=== PATIENT | female | born 1985 | race Caucasian/White ===

== ENCOUNTER 2016-12-19 19:38 | Emergency (ER) | payer BC ==
[2016-12-19] MEDS ORDERED: Ketorolac 60 MG/2 ML SDV IM ONE (19:40)
== END 2016-12-19 19:54 | disposition home or self-care (01) ==
LOC: MW.ED 19:38
DX: Z76.0 Encounter for issue of repeat prescription (principal)
CPT/HCPCS: 96372; 99281; J1885

== ENCOUNTER → 2016-12-21 | Outpatient (CLI) | payer BC ==
--- NOTE | 2016-12-21 12:54 | MR ---
EXAMINATION: MRI lumbar spine HISTORY: radiculopathy COMPARISON: None TECHNIQUE: Multiplanar and multisequence images obtained of the lumbar spine. FINDINGS: The lumbar spinal alignment is normal. The vertebral body heights appear well maintained. There is no abnormal bone marrow signal identified. The distal spinal cord appears normal and the c onus terminates at L1. The SI joints are symmetric. There is a likely layering hemorrhagic left ova miko cyst noted measuring up to 3.3 cm. T12-L3: Unremarkable. L3-L4: Small diffuse disc bulge with minimal facet and ligamentum flavum hypertrophy resulting in mi nimal spinal canal stenosis and mild left neural foraminal stenosis. L4-L5: Small diffuse disc bulge with a superimposed moderate right disc extrusion extending towards the right lateral recess and the finding the right traversing L5 nerve root. There is mild spinal ca nal stenosis and mild left and moderate right neural foraminal stenosis. L5-S1: Small diffuse disc bulge asymmetric to the right without significant spinal canal stenosis. M ild right and minimal left neural foraminal stenosis. IMPRESSION: 1. Multilevel degenerative disc disease noted most prominent at L4-L5 with individual details above.
== END ==
LOC: MW.MRI 08:27
PROVIDERS: ATTEND Psychiatry & Neurology Neuromuscular Medicine
DX: M54.17 Radiculopathy, lumbosacral region (principal); M51.36 Other intervertebral disc degeneration, lumbar region
CPT/HCPCS: 72148; 72148-26

== ENCOUNTER 2017-01-05 11:33 | Emergency (ER) | payer BC ==
[2017-01-05] MEDS ORDERED: Ketorolac 60 MG/2 ML SDV ONE (11:35)
[2017-01-05] MEDS ORDERED: Ketorolac 60 MG/2 ML SDV IM ONE (11:39)
== END 2017-01-05 11:40 | disposition home or self-care (01) ==
LOC: MW.ED 11:33
DX: Z53.21 Procedure and treatment not carried out due to patient leaving prior to being seen by health care provider (principal)
CPT/HCPCS: 96372; J1885

== ENCOUNTER 2017-02-15 12:40 | Emergency (ER) | payer BC ==
[2017-02-15] MEDS ORDERED: Ketorolac 60 MG/2 ML SDV IM ONE (12:41)
== END 2017-02-15 12:45 | disposition left against medical advice (07) ==
LOC: MW.ED 12:40
DX: Z53.21 Procedure and treatment not carried out due to patient leaving prior to being seen by health care provider (principal)
CPT/HCPCS: 96372; 99281; J1885

== ENCOUNTER 2017-09-15 07:16 | Emergency (ER) | payer BC ==
[~2017-09-15 07:16] MED LIST: Sodium Chloride 0.9% 1,000 ML IV ONE
[2017-09-15] MEDS ORDERED: Ondansetron 4 MG/2 ML SDV IVPUSH ONE ×2 (07:41→08:13)
[2017-09-15] MEDS ORDERED: Ondansetron 4 MG/2 ML SDV ONE (08:11)
[2017-09-15] MEDS ORDERED: Ondansetron 4 MG Tab.DIS PO ONE (08:21)
[2017-09-15] MEDS ORDERED: Ondansetron 4 MG Tab.DIS ONE (08:24)
== END 2017-09-15 09:15 | disposition home or self-care (01) ==
LOC: MW.ED 07:16 → EDSTATUS 12:19 → MW.ED 12:33 → EDSTATUS 12:33
DX: Z53.21 Procedure and treatment not carried out due to patient leaving prior to being seen by health care provider (principal)
CPT/HCPCS: 96361; 96374; 96376; A9270; J2405; J7040

== ENCOUNTER 2019-01-06 11:20 | Emergency (ER) | payer BC ==
[2019-01-06] MEDS ORDERED: Pantoprazole 40 MG Vial IVPUSH ONE (11:29)
[2019-01-06] MEDS ORDERED: Ondansetron 4 MG/2 ML SDV IVPUSH ONE (11:29)
[2019-01-06] MEDS ORDERED: Sodium Chloride 0.9% 1,000 ML IV ONE (11:29)
--- NOTE | 2019-01-06 11:31 | EDM.PDOC ---
ED HPI GENERAL MEDICAL PROBLEM - General Stated Complaint: ABDOMINAL PAIN Time Seen by Provider: 01/06/19 11:30 Source of Information: Reports: Patient - History of Present Illness INITIAL COMMENTS - FREE TEXT/NARRATIVE: HISTORY AND PHYSICAL: History of present illness: [Patient presents with right upper quadrant/ epigastric pain and nausea which began last night no loose stools as we some food association she has been taking [id number] omeprazole without benefit presents with 8 out of 10 pain No fever vomiting chills sweats Review of systems: As per history of present illness and below otherwise all systems reviewed and negative. Past medical history: As per history of present illness and as reviewed below otherwise noncontributory. Surgical history: As per history of present illness and as reviewed below otherwise noncontributory. Social history: No reported history of drug or alcohol abuse. Family history: As per history of present illness and as reviewed below otherwise noncontributory. Physical exam: HEENT: Atraumatic, normocephalic, pupils reactive, negative for conjunctival pallor or scleral icterus, mucous membranes moist, throat clear, neck supple, nontender, trachea midline. Lungs: Clear to auscultation, breath sounds equal bilaterally, chest nontender. Heart: S1S2, regular, negative for clicks, rubs, or JVD. Abdomen: Soft, nondistended, tender on deep palpation right upper quadrant as well as epigastrium no guarding or rebound tenderness. Negative for masses or hepatosplenomegaly. Negative for costovertebral tenderness. Pelvis: Stable nontender. Genitourinary: Deferred. Rectal: Deferred. Extremities: Atraumatic, negative for cords or calf pain. Neurovascular unremarkable. Neuro: Awake, alert, oriented. Cranial nerves II through XII unremarkable. Cerebellum unremarkable. Motor and sensory unremarkable throughout. Exam nonfocal. Diagnostics: [CBC CMP troponin lipase UA hCG H pylori Abdomen flat and upright Right upper quadrant limited ultrasound ] Therapeutics: [Normal saline Proton X Zofran GI cocktail Our goal 30 mg IV-and resolved with Toradol Toradol [place] Cipro Zofran Proton X Fulda diet Follow-up Gen. surgery for consideration of endoscopy and/or HIDA scan testing ] Impression: [ abdominal pain -resolved ] Definitive disposition and diagnosis as appropriate pending reevaluation and review of above. epigastric area Pain Score (Numeric/FACES): 0 - Related Data Allergies Allergy/AdvReac Type Severity Reaction Status Date / Time Penicillins Allergy Anaphylactic Verified 12/19/16 19:49 Shock Home Meds: Home Meds Minocycline [Minocin] 50 mg PO BID 01/06/19 [History] metFORMIN [Glucophage XR] 500 mg PO DAILY 01/06/19 [History] valACYclovir HCl [Valtrex] 500 mg PO DAILY 01/06/19 [History] Past Medical History Respiratory History: Reports: Asthma - Past Surgical History Neurological Surgical History: Reports: Other (See Below) ED ROS GENERAL - Review of Systems Review Of Systems: See Below ED EXAM, GENERAL - Physical Exam Exam: See Below Course - Vital Signs Last Recorded V/S: Last Vital Signs Temp 98.4 F 01/06/19 13:00 Pulse 81 01/06/19 13:00 Resp 16 01/06/19 11:38 BP 112/66 01/06/19 13:00 Pulse Ox 97 01/06/19 13:00 - Orders/Labs/Meds Orders: Active Orders 24 hr Category Date Time Status Abdomen Ltd [US] Stat Exams 01/06/19 12:57 Taken CULTURE URINE [RM] Stat Lab 01/06/19 12:59 Received Labs: Laboratory Tests 01/06/19 01/06/19 01/06/19 Range/Units 11:29 11:43 11:43 WBC 8.77 (4.0-11.0) K/uL RBC 4.97 (4.30-5.90) M/uL Hgb 15.5 (12.0-16.0) g/dL Hct 44.6 (36.0-46.0) % MCV 89.7 (80.0-98.0) fL MCH 31.2 (27.0-32.0) pg MCHC 34.8 (31.0-37.0) g/dL RDW Std Deviation 41.3 (28.0-62.0) fl RDW Coeff of Reina 13 (11.0-15.0) % Plt Count 245 (150-400) K/uL MPV 9.80 (7.40-12.00) fL Neut % (Auto) 88.9 H (48.0-80.0) % Lymph % (Auto) 5.2 L (16.0-40.0) % [place] % (Auto) 5.7 (0.0-15.0) % Eos % (Auto) 0.1 (0.0-7.0) % Baso % (Auto) 0.1 (0.0-1.5) % Neut # (Auto) 7.8 H (1.4-5.7) K/uL Lymph # (Auto) 0.5 L (0.6-2.4) K/uL [place] # (Auto) 0.5 (0.0-0.8) K/uL Eos # (Auto) 0.0 (0.0-0.7) K/uL Baso # (Auto) 0.0 (0.0-0.1) K/uL Nucleated RBC % 0.0 /100WBC Nucleated RBCs # 0 K/uL Sodium 135 L (136-145) mmol/L Potassium 3.8 (3.5-5.1) mmol/L Chloride 103 (98-107) mmol/L Carbon Dioxide 21.2 (21.0-32.0) mmol/L BUN 14 (7.0-18.0) mg/dL Creatinine 0.7 (0.6-1.0) mg/dL Est Cr Clr Drug Dosing 105.01 mL/min Estimated GFR (MDRD) > 60.0 ml/min Glucose 101 (74-106) mg/dL Calcium 8.4 L (8.5-10.1) mg/dL Total Bilirubin 0.4 (0.2-1.0) mg/dL AST 9 L (15-37) IU/L ALT 13 L (14-63) IU/L Alkaline Phosphatase 45 L (46-116) U/L Troponin I < 0.050 (0.000-0.056) ng/mL Total Protein 6.8 (6.4-8.2) g/dL Albumin 3.4 (3.4-5.0) g/dL Globulin 3.4 (2.6-4.0) g/dL Albumin/Globulin Ratio 1.0 (0.9-1.6) Lipase 80 (73-393) U/L Urine Color Urine Appearance Urine pH (5.0-8.0) Ur Specific [place] (1.001-1.035) Urine Protein (NEGATIVE) mg/dL Urine Glucose (UA) (NEGATIVE) mg/dL Urine Ketones (NEGATIVE) mg/dL Urine Occult Blood (NEGATIVE) Urine Nitrite (NEGATIVE) Urine Bilirubin (NEGATIVE) Urine Urobilinogen (<2.0) EU/dL Ur Leukocyte Esterase (NEGATIVE) Urine RBC (0-2/HPF) Urine WBC (0-5/HPF) Ur Epithelial Cells (NONE-FEW) Urine Bacteria (NEGATIVE) Urine HCG, Qual NEGATIVE (NEGATIVE) H. pylori IgG Antibody (NEG) 01/06/19 01/06/19 Range/Units 11:43 12:59 WBC (4.0-11.0) K/uL RBC (4.30-5.90) M/uL Hgb (12.0-16.0) g/dL Hct (36.0-46.0) % MCV (80.0-98.0) fL MCH (27.0-32.0) pg MCHC (31.0-37.0) g/dL RDW Std Deviation (28.0-62.0) fl RDW Coeff of Reina (11.0-15.0) % Plt Count (150-400) K/uL MPV (7.40-12.00) fL Neut % (Auto) (48.0-80.0) % Lymph % (Auto) (16.0-40.0) % [place] % (Auto) (0.0-15.0) % Eos % (Auto) (0.0-7.0) % Baso % (Auto) (0.0-1.5) % Neut # (Auto) (1.4-5.7) K/uL Lymph # (Auto) (0.6-2.4) K/uL [place] # (Auto) (0.0-0.8) K/uL Eos # (Auto) (0.0-0.7) K/uL Baso # (Auto) (0.0-0.1) K/uL Nucleated RBC % /100WBC Nucleated RBCs # K/uL Sodium (136-145) mmol/L Potassium (3.5-5.1) mmol/L Chloride (98-107) mmol/L Carbon Dioxide (21.0-32.0) mmol/L BUN (7.0-18.0) mg/dL Creatinine (0.6-1.0) mg/dL Est Cr Clr Drug Dosing mL/min Estimated GFR (MDRD) ml/min Glucose (74-106) mg/dL Calcium (8.5-10.1) mg/dL Total Bilirubin (0.2-1.0) mg/dL AST (15-37) IU/L ALT (14-63) IU/L Alkaline Phosphatase (46-116) U/L Troponin I (0.000-0.056) ng/mL Total Protein (6.4-8.2) g/dL Albumin (3.4-5.0) g/dL Globulin (2.6-4.0) g/dL Albumin/Globulin Ratio (0.9-1.6) Lipase (73-393) U/L Urine Color YELLOW Urine Appearance CLEAR Urine pH 7.0 (5.0-8.0) Ur Specific [place] <= 1.005 (1.001-1.035) Urine Protein NEGATIVE (NEGATIVE) mg/dL Urine Glucose (UA) NEGATIVE (NEGATIVE) mg/dL Urine Ketones NEGATIVE (NEGATIVE) mg/dL Urine Occult Blood NEGATIVE (NEGATIVE) Urine Nitrite NEGATIVE (NEGATIVE) Urine Bilirubin NEGATIVE (NEGATIVE) Urine Urobilinogen 0.2 (<2.0) EU/dL Ur Leukocyte Esterase TRACE H (NEGATIVE) Urine RBC 0-2 (0-2/HPF) Urine WBC 0-2 (0-5/HPF) Ur Epithelial Cells OCCASIONAL (NONE-FEW) Urine Bacteria RARE (NEGATIVE) Urine HCG, Qual (NEGATIVE) H. pylori IgG Antibody NEGATIVE (NEG) Meds: Medications Discontinued Medications Generic Name Dose Route Start Last Admin Trade Name Freq PRN Reason Stop Dose Admin Al Hydroxide/Mg Hydroxide 15 0 ml 01/06/19 12:06 01/06/19 12:16 ml/ Metoclopramide HCl 5 mg/ PO 01/06/19 12:07 1 each Lidocaine HCl 5 ml ONETIME ONE Administration Sodium Chloride 1,000 mls @ 999 mls/hr 01/06/19 11:29 01/06/19 11:47 Normal Saline IV 01/06/19 12:29 999 mls/hr STAT ONE Administration Sterile Water Confirm 01/06/19 11:43 01/06/19 11:53 Sterile Water For Injection Administered 01/06/19 11:44 20 mls/hr Dose Administration 20 mls @ as directed .ROUTE .STK-MED ONE Ketorolac Tromethamine 30 mg 01/06/19 12:08 01/06/19 12:14 Toradol IVPUSH 01/06/19 12:09 30 mg ONETIME ONE Administration Ondansetron HCl 8 mg 01/06/19 11:29 01/06/19 11:47 Zofran IVPUSH 01/06/19 11:30 8 mg ONETIME ONE Administration Pantoprazole Sodium 80 mg 01/06/19 11:29 01/06/19 11:54 Protonix Iv IVPUSH 01/06/19 11:30 80 mg .BOLUS ONE Administration Departure - Departure Time of Disposition: 13:51 Disposition: Home, Self-Care 01 Condition: Good Clinical Impression: Abdominal pain - Discharge Information Referrals: PCP,None [Primary Care Provider] - Additional Instructions: Medication as prescribed Fulda diet as discussed Return if symptoms persist or worsen Follow-up with general surgery; call phone number below to schedule appropriate follow-up for consideration of endoscopy and/or HIDA scan testing [facility] - General Surgery [address], [address] [place] [address] The following information is given to patients seen in the emergency department who are being discharged to home. This information is to outline your options for follow-up care. We provide all patients seen in our emergency department with a follow-up referral. The need for follow-up, as well as the timing and circumstances, are variable depending upon the specifics of your emergency department visit. If you don't have a primary care physician on staff, we will provide you with a referral. We always advise you to contact your personal physician following an emergency department visit to inform them of the circumstance of the visit and for follow-up with them and/or the need for any referrals to a consulting specialist. The emergency department will also refer you to a specialist when appropriate. This referral assures that you have the opportunity for follow-up care with a specialist. All of these measure are taken in an effort to provide you with optimal care, which includes your follow-up. Under all circumstances we always encourage you to contact your private physician who remains a resource for coordinating your care. When calling for follow-up care, please make the office aware that this follow-up is from your recent emergency room visit. If for any reason you are refused follow-up, please contact the [facility] emergency department at and asked to speak to the emergency department charge nurse. - My Orders Last 24 Hours: My Active Orders 01/06/19 12:57 Abdomen Ltd [US] Stat 01/06/19 12:59 CULTURE URINE [RM] Stat - Assessment/Plan Last 24 Hours: My Active Orders 01/06/19 12:57 Abdomen Ltd [US] Stat 01/06/19 12:59 CULTURE URINE [RM] Stat
[2019-01-06] MEDS ORDERED: Water For Injection, Sterile 20 ML ONE (11:43)
[2019-01-06] MEDS ORDERED: Alum Hydrox/Mag Hydrox/Simeth 15 ML, Metoclopramide 5 MG, Lidocaine 2% 5 ML PO ONE ×3 (12:06)
[2019-01-06] MEDS ORDERED: Ketorolac 30 MG/ML SDV IVPUSH ONE (12:08)
[2019-01-06 12:15] LABS: CHLORIDE,CL 103 mmol/L (98-107); SODIUM,NA 135 mmol/L (136-145)
--- NOTE | 2019-01-06 12:55 | CR ---
Indication: Upper abdominal pain. Technique: AP supine and upright views of the abdomen and pelvis were obtained. Comparison: None Findings: The symphysis pubis is not included on this exam. The bowel gas pattern is nonobstructive. A calculus is identified in the left abdomen near the iliac crest. It is uncertain if this is within or superimposed upon the descending colon. Impression: Nonobstructed bowel-gas pattern. No free air Dictated by Claudia Traore MD @ Jan 06 2019 12:52PM Signed by Dr. Claudia Tarore @ Jan 06 2019 12:53PM
--- NOTE | 2019-01-06 14:08 | US ---
INDICATION: Epigastric pain. Nausea. FINDINGS: Right upper quadrant abdominal ultrasound was performed. The liver is of normal echotexture without any focal lesions. There is no gallstone, gallbladder wall thickening or pericholecystic fluid. The common bile duct is not dilated measuring 0.5 cm. There is the appearance of a 0.25 cm polyp in the region the cystic duct/neck of the gallbladder. The visualized portion of the pinky and right kidney are unremarkable. The right kidney measures 11.6 cm in greatest length. IMPRESSION: No acute abnormality on right upper quadrant abdominal ultrasound Appearance of a 0.25 cm polyp in the region of the cystic duct/neck of the gallbladder. Dictated by Monroe Handley MD @ 01/06/2019 2:08:03 PM Dictated by: Monroe Handley MD @ 01/06/2019 14:08:12 (Electronically Signed)
== END 2019-01-06 14:05 | disposition home or self-care (01) ==
LOC: MW.ED 11:20
DX: R10.11 Right upper quadrant pain (principal); R10.13 Epigastric pain; J45.909 Unspecified asthma, uncomplicated; Z79.899 Other long term (current) drug therapy; Z79.84 Long term (current) use of oral hypoglycemic drugs; Z88.0 Allergy status to penicillin
CPT/HCPCS: 36415; 74019; 76705; 80053; 81001; 81025; 83690; 84484; 85025; 86677; 87086; 96361; 96374; 96375; 99284; A9270; C9113; J1885; J2405; J7040

== ENCOUNTER 2019-02-05 06:25 | Day surgery (SDC) | payer BC ==
[~2019-02-05 06:25] MED LIST changes: +Lactated Ringers 1,000 ML IV SCH; -Sodium Chloride 0.9% 1,000 ML IV ONE
[2019-02-05] MEDS ORDERED: fentaNYL 100 MCG/2 ML SDV ONE (07:07)
[2019-02-05] MEDS ORDERED: Lidocaine 2% 5 ML SDV ONE (07:07)
[2019-02-05] MEDS ORDERED: Propofol 200 MG/20 ML SDV ONE (07:07)
[2019-02-05] MEDS ORDERED: Midazolam 1 MG/ML 2 ML SDV ONE (07:07)
--- NOTE | 2019-02-05 07:22 | PCM.PREANE ---
Preanesthetic Assessment - Anesthesia/Transfusion/Family Hx Anesthesia History: Prior Anesthesia Without Reaction Family History of Anesthesia Reaction: No Transfusion History: No Prior Transfusion(s) Intubation History: Unknown - Review of Systems General: No Symptoms Pulmonary: No Symptoms Cardiovascular: No Symptoms Gastrointestinal: Abdominal Pain Neurological: No Symptoms Other: Reports: None - Physical Assessment Height: 5 ft 6 in Weight: 68.039 kg ASA Class: 2 Mental Status: Alert & Oriented x3 Airway Class: Mallampati = 1 Dentition: Reports: Normal Dentition (front teeth bonded x2) Thyro-Mental Finger Breadths: 3 Mouth Opening Finger Breadths: 3 ROM/Head Extension: Full Lungs: Clear to Auscultation, Normal Respiratory Effort Cardiovascular: Regular Rate, Regular Rhythm - Allergies Allergies/Adverse Reactions: Allergies Allergy/AdvReac Type Severity Reaction Status Date / Time Penicillins Allergy Anaphylactic Verified 01/31/19 12:44 Shock - Blood Blood Available: No - Anesthesia Plan Pre-Op Medication Ordered: None - Acknowledgements Anesthesia Type Planned: MAC Pt an Appropriate Candidate for the Planned Anesthesia: Yes Alternatives and Risks of Anesthesia Discussed w Pt/Guardian: Yes Pt/Guardian Understands and Agrees with Anesthesia Plan: Yes PreAnesthesia Questionnaire HEENT History: Reports: Other (See Below) Other HEENT History: wears glasses/contacts, has veneers on 2 upper front teeth Respiratory History: Reports: Asthma (h/o asthme) Gastrointestinal History: Reports: GERD Genitourinary History: Reports: Renal Calculus Other Genitourinary History: passed 1 kidney stone [employer] History: Reports: Polycystic Ovaries Other OB/BYN History: PCOS takes metformin Musculoskeletal History: Reports: Fracture Other Musculoskeletal History: hx of fx right arm and right middle finger - Infectious Disease History Infectious Disease History: Reports: Chicken Pox - Past Surgical History HEENT Surgical History: Reports: Oral Surgery Other HEENT Surgeries/Procedures: wisdom teeth removal Neurological Surgical History: Reports: Laminectomy, Lumbar Spine Other Neurological Surgeries/Procedures: hx of hemilaminectomy x2 Musculoskeletal Surgical History: Reports: Other (See Below) Other Musculoskeletal Surgeries/Procedures:: Excision of Lipoma - SUBSTANCE USE Smoking Status *Q: Never Smoker Recreational Drug Use History: No - HOME MEDS Home Medications: Home Meds metFORMIN [Glucophage XR] 500 mg PO DAILY 01/06/19 [History] Albuterol Sulfate [Proair Hfa] 2 puff INH Q4H PRN 01/31/19 [History] Cetirizine [ZyrTEC] 10 mg PO DAILY PRN 01/31/19 [History] Norgestimate-Ethinyl Estradiol [Sprintec 28 Day Tablet] 1 tab PO DAILY 01/31/19 [History] Pantoprazole Sodium 40 mg PO DAILY 01/31/19 [History] Triamcinolone Acetonide [Nasacort] 2 spray NASBOTH DAILY 01/31/19 [History] - CURRENT (IN HOUSE) MEDS Current Meds: Current Medications Lactated Ringer's (Ringers, Lactated) 1,000 mls @ 125 mls/hr IV ASDIRECTED RAKESH Discontinued Medications Fentanyl (Sublimaze) Confirm Administered Dose 100 mcg .ROUTE .STK-MED ONE Stop: 02/05/19 07:08 Lactated Ringer's (Ringers, Lactated) 1,000 mls @ 125 mls/hr IV ASDIRECTED RAKESH Lidocaine (Xylocaine-Mpf 2%) Confirm Administered Dose 5 ml .ROUTE .STK-MED ONE Stop: 02/05/19 07:08 Midazolam HCl (Versed 1 Mg/Ml) Confirm Administered Dose 2 mg .ROUTE .STK-MED ONE Stop: 02/05/19 07:08 Propofol (Diprivan 20 Ml) Confirm Administered Dose 400 mg .ROUTE .STK-MED ONE Stop: 02/05/19 07:08
[2019-02-05] MEDS ORDERED: Lactated Ringers 1,000 ML IV SCH (08:00)
--- NOTE | 2019-02-05 08:00 | PCM.OPNOTE ---
- General Post-Op/Procedure Note Date of Surgery/Procedure: 02/05/19 Operative Procedure(s): Esophagogastroduodenoscopy with gastric biopsies Pre Op Diagnosis: Acute epigastric pain with heartburn Post-Op Diagnosis: Mild acute gastritis. No evidence of hiatal hernia or esophagitis. Anesthesia Technique: MAC (ASA II) Primary Surgeon: John Anderson Condition: Good Free Text/Narrative:: DICTATION [id number] CPT CODE 93246
--- NOTE | 2019-02-05 09:14 | PCM48HPAN ---
Post Anesthesia Note - EVALUATION WITHIN 48HRS OF ANESTHETIC Vital Signs in Normal Range: Yes Patient Participated in Evaluation: Yes Respiratory Function Stable: Yes Airway Patent: Yes Cardiovascular Function Stable: Yes Hydration Status Stable: Yes Pain Control Satisfactory: Yes Nausea and Vomiting Control Satisfactory: Yes Mental Status Recovered: Yes Resp Rate: 12 - COMMENTS/OBSERVATIONS Free Text/Narrative:: no anesthesia problems
--- NOTE | 2019-02-05 11:36 | OR ---
SURGEON: John Anderson M.D. DATE OF PROCEDURE: 02/05/2019 OPERATION PERFORMED: Esophagogastroduodenoscopy with biopsy. PRIMARY SURGEON: John Anderson M.D. ANESTHESIA: MAC. ASA CLASSIFICATION: II. PREOPERATIVE DIAGNOSIS: Epigastric pain with heartburn. POSTOPERATIVE DIAGNOSIS: Mild acute gastritis. No evidence of hiatal hernia or esophagitis. DESCRIPTION OF PROCEDURE: The patient was taken to the endoscopy room and positioned on the endoscopy table in the supine position. Time-out was called for appropriate identification of the patient and procedure. Monitored anesthesia care was provided. The bite block was placed between the patient's teeth. The gastroscope was inserted through the bite block and advanced without difficulty through the esophagus and stomach, into the duodenum where examination was now carried out in a retrograde fashion. The duodenum shows no acute inflammatory changes or ulcerations. The stomach does show [id number] acute gastritis. No ulcerations were noted. Antral biopsies were obtained to look for the presence of Helicobacter pylori. The gastroscope was retroflexed to visualize the proximal stomach. No mid or proximal lesions were identified. The gastroscope was then straightened and slowly withdrawn carefully visualizing the greater and lesser curvatures. Again, no ulcerations were noted. The scope was withdrawn to the GE junction. No hiatal hernia was noted and there were no inflammatory changes in the esophagus. The esophagus itself demonstrates good contractility. No mid or proximal lesions were seen. There was no evidence of a Zenker's diverticulum. The vocal cords were visualized as the scope was withdrawn and noted to move symmetrically. The gastroscope was then removed with the patient having tolerated the procedure well. She was taken to recovery room in stable condition. RANDOLPH / FRANKLYN /[id number]
== END 2019-02-05 09:15 | disposition home or self-care (01) ==
LOC: MW.SDS 06:25
PROVIDERS: ATTEND Surgery
DX: K29.00 Acute gastritis without bleeding (principal); J45.909 Unspecified asthma, uncomplicated; E28.2 Polycystic ovarian syndrome; K21.9 Gastro-esophageal reflux disease without esophagitis; K82.4 Cholesterolosis of gallbladder; J45.20 Mild intermittent asthma, uncomplicated; F41.8 Other specified anxiety disorders; L68.0 Hirsutism; Z88.0 Allergy status to penicillin; Z79.84 Long term (current) use of oral hypoglycemic drugs; Z79.899 Other long term (current) drug therapy
CPT/HCPCS: 43239; 81025; J2001; J2250; J2704; J3010; J7120; 00731

== ENCOUNTER 2019-02-26 13:03 | Emergency (ER) | payer OTHER, BC ==
[2019-02-26] MEDS ORDERED: Diphtheria,Pertussis(Acell),Tetanus Vaccine 0.5 ML Syringe IM ONE (13:09)
--- NOTE | 2019-02-26 13:11 | EDM.PDOC ---
ED HPI GENERAL MEDICAL PROBLEM - General Stated Complaint: NEEDLE STICK Time Seen by Provider: 02/26/19 13:08 Source of Information: Reports: Patient History Limitations: Reports: No Limitations - History of Present Illness INITIAL COMMENTS - FREE TEXT/NARRATIVE: HISTORY AND PHYSICAL: History of present illness: Patient is a 33-year-old female who presents to the emergency room with complaints of needle stick exposure to her left middle distal digit. 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 She states she did squeeze the area and cleanse the area thoroughly. Her tetanus is up to date. Occupational health has been contacted and involved with the source exposure. Denies any other concerns or complaints at this time. Review of systems: As per history of present illness and below otherwise all systems reviewed and negative. Past medical history: As per history of present illness and as reviewed below otherwise noncontributory. Surgical history: As per history of present illness and as reviewed below otherwise noncontributory. Social history: See social history for further information Family history: As per history of present illness and as reviewed below otherwise noncontributory. Physical exam: General: Well-developed and well-nourished 33-year-old female. Alert and oriented. Nontoxic appearing and in no acute distress. HEENT: Atraumatic, normocephalic, pupils equal and reactive bilaterally, negative for conjunctival pallor or scleral icterus, mucous membranes moist, trachea midline. No drooling or trismus noted. No meningeal signs. No hot potato voice noted. Lungs: Clear to auscultation, breath sounds equal bilaterally. Heart: S1S2, regular rate and rhythm without overt murmur Abdomen: Soft, nondistended, nontender. Skin: Puncture site to the left middle distal pad of finger. Otherwise skin is intact, warm, dry. No lesions or rashes noted. Extremities: Moves all extremities per self without difficulty or deficits, negative for cords or calf pain. Neurovascular unremarkable. Neuro: Awake, alert, oriented. Cranial nerves II through XII unremarkable. Cerebellum unremarkable. Motor and sensory unremarkable throughout. Exam nonfocal. Notes: Needle stick exposure site was thoroughly cleansed. Lab work has been done. She will follow-up with occupational health for lab results in source exposure results. She offers no other concerns or complaints at this time. Supportive care measures were reviewed and discussed. Voices understanding and is agreeable to plan of care. Denies any further questions or concerns at this time. Diagnostics: Employee exposure panel Therapeutics: Wound care Prescription: None Impression: Needle stick Plan: 1. The skin clean and dry. Continue to monitor for signs of infection. 2. Follow-up with occupational health for testing results. Return to the ED as needed and as discussed. Definitive disposition and diagnosis as appropriate pending reevaluation and review of above. Onset: Today - Related Data Allergies Allergy/AdvReac Type Severity Reaction Status Date / Time Penicillins Allergy Anaphylactic Verified 01/31/19 12:44 Shock Home Meds: Home Meds metFORMIN [Glucophage XR] 500 mg PO DAILY 01/06/19 [History] Albuterol Sulfate [Proair Hfa] 2 puff INH Q4H PRN 01/31/19 [History] Cetirizine [ZyrTEC] 10 mg PO DAILY PRN 01/31/19 [History] Norgestimate-Ethinyl Estradiol [Sprintec 28 Day Tablet] 1 tab PO DAILY 01/31/19 [History] Pantoprazole Sodium 40 mg PO DAILY 01/31/19 [History] Triamcinolone Acetonide [Nasacort] 2 spray NASBOTH DAILY 01/31/19 [History] Past Medical History HEENT History: Reports: Other (See Below) Other HEENT History: wears glasses/contacts, has veneers on 2 upper front teeth Respiratory History: Reports: Asthma Gastrointestinal History: Reports: GERD Genitourinary History: Reports: Renal Calculus Other Genitourinary History: passed 1 kidney stone POWER BARKER History: Reports: Polycystic Ovaries Other POWER BARKER History: PCOS takes metformin Musculoskeletal History: Reports: Fracture Other Musculoskeletal History: hx of fx right arm and right middle finger - Infectious Disease History Infectious Disease History: Reports: Chicken Pox - Past Surgical History HEENT Surgical History: Reports: Oral Surgery Other HEENT Surgeries/Procedures: wisdom teeth removal Neurological Surgical History: Reports: Laminectomy, Lumbar Spine Other Neurological Surgeries/Procedures: hx of hemilaminectomy x2 Musculoskeletal Surgical History: Reports: Other (See Below) Other Musculoskeletal Surgeries/Procedures:: Excision of Lipoma Social & Family History - Family History Family Medical History: Noncontributory ED ROS GENERAL - Review of Systems Review Of Systems: ROS reveals no pertinent complaints other than HPI. ED EXAM, GENERAL - Physical Exam Exam: See Below (See dictation) Course - Orders/Labs/Meds Orders: Active Orders 24 hr Category Date Time Status HEPATITIS B SURFACE AB QUANT [CHEM] Routine Lab 02/26/19 13:09 Ordered HEPATITIS B SURFACE AG [CHEM] Routine Lab 02/26/19 13:09 Ordered HEPATITIS C ANTIBODY [CHEM] Routine Lab 02/26/19 13:09 Ordered HIV12 AG/AB 4TH GEN [CHEM] Routine Lab 02/26/19 13:09 Ordered Meds: Medications Discontinued Medications Generic Name Dose Route Start Last Admin Trade Name Freq PRN Reason Stop Dose Admin Diphtheria/Tetanus/Acell Pertussis 0.5 ml 02/26/19 13:09 Adacel IM 02/26/19 13:10 .ONCE ONE Departure - Departure Time of Disposition: 13:11 Disposition: Home, Self-Care 01 Clinical Impression: Needle stick injury of finger Qualifiers: Encounter type: initial encounter Qualified Code(s): S61.239A - Puncture wound without foreign body of unspecified finger without damage to nail, initial encounter - Discharge Information Instructions: Needlestick Injury, [id number] Referrals: PCP,Unknown [Primary Care Provider] - Additional Instructions: The following information is given to patients seen in the emergency department who are being discharged to home. This information is to outline your options for follow-up care. We provide all patients seen in our emergency department with a follow-up referral. The need for follow-up, as well as the timing and circumstances, are variable depending upon the specifics of your emergency department visit. If you don't have a primary care physician on staff, we will provide you with a referral. We always advise you to contact your personal physician following an emergency department visit to inform them of the circumstance of the visit and for follow-up with them and/or the need for any referrals to a consulting specialist. The emergency department will also refer you to a specialist when appropriate. This referral assures that you have the opportunity for follow-up care with a specialist. All of these measure are taken in an effort to provide you with optimal care, which includes your follow-up. Under all circumstances we always encourage you to contact your private physician who remains a resource for coordinating your care. When calling for follow-up care, please make the office aware that this follow-up is from your recent emergency room visit. If for any reason you are refused follow-up, please contact the Emergency Department at and asked to speak to the emergency department charge nurse. Primary Care [address] [place] [address] [address] 1. The skin clean and dry. Continue to monitor for signs of infection. 2. Follow-up with occupational health for testing results. Return to the ED as needed and as discussed. - My Orders Last 24 Hours: My Active Orders 02/26/19 13:09 HEPATITIS B SURFACE AB QUANT [CHEM] Routine HEPATITIS B SURFACE AG [CHEM] Routine HEPATITIS C ANTIBODY [CHEM] Routine HIV12 AG/AB 4TH GEN [CHEM] Routine - Assessment/Plan Last 24 Hours: My Active Orders 02/26/19 13:09 HEPATITIS B SURFACE AB QUANT [CHEM] Routine HEPATITIS B SURFACE AG [CHEM] Routine HEPATITIS C ANTIBODY [CHEM] Routine HIV12 AG/AB 4TH GEN [CHEM] Routine
== END 2019-02-26 13:20 | disposition home or self-care (01) ==
LOC: MW.ED 13:03
DX: S61.233A Puncture wound without foreign body of left middle finger without damage to nail, initial encounter (principal); J45.909 Unspecified asthma, uncomplicated; K21.9 Gastro-esophageal reflux disease without esophagitis; Z79.899 Other long term (current) drug therapy; Z98.890 Other specified postprocedural states; Z23 Encounter for immunization; W46.1XXA Contact with contaminated hypodermic needle, initial encounter
CPT/HCPCS: 36415; 86706; 86803; 87340; 87389; 99282

== ENCOUNTER 2020-08-06 07:57 | Emergency (ER) | payer BC ==
[2020-08-06] MEDS ORDERED: Lidocaine 5% 700 MG Patch TOP ONE (08:06)
[2020-08-06] MEDS ORDERED: Acetaminophen 500 MG Tab PO ONE (08:06)
[2020-08-06] MEDS ORDERED: Ketorolac 15 MG/ML SDV IM ONE (08:06)
--- NOTE | 2020-08-06 08:07 | EDM.PDOC ---
ED HPI GENERAL MEDICAL PROBLEM - General Chief Complaint: Back Pain or Injury Stated Complaint: UNKNOWN Time Seen by Provider: 08/06/20 08:06 Source of Information: Reports: Patient, Old Records History Limitations: Reports: No Limitations - History of Present Illness INITIAL COMMENTS - FREE TEXT/NARRATIVE: This is a very pleasant 35-year-old female with a past medical history of PCOS and gastritis presenting with back pain. She reports a 2-day history of right- sided low back pain, lateral to the upper lumbar and lower thoracic vertebrae. She states that she was lifting her grandchild yesterday and experienced sudden onset pain in this area. She has had issues with chronic back pain in the past and has had microdiscectomies performed and has known diagnosed facet arth ropathy. She follows with a neurologist here in town. She has not had any surgical hardware implanted. Pain is worse when she tries to stand up straight or bend over, relieved with rest. Pain is nonradiating. Attempted self treatment with some ibuprofen prior to arrival. States this pain feels typical compared to her prior episodes of back pain. She denies any fever, lower extremity numbness or weakness, bowel or bladder retention or incontinence, saddle anesthesia, foot drop, history of blunt trauma to the back, or implantation of surgical hardware in the spine, no history of autoimmune disease. Past medical history: Reviewed, no additional pertinent history. Surgical history: Reviewed in system, no additional pertinent history. Social history: Reviewed in system, no additional pertinent history. Family history: Reviewed in system, no additional pertinent history. PHYSICAL EXAM Vital signs reviewed. Nursing notes reviewed. Constitutional: Awake, alert, non-distressed. Head: Normocephalic, atraumatic. Eyes: EOMI, conjunctiva normal, no discharge, no scleral icterus. Ears, Nose, Throat: External ears and nose normal, moist oral mucosa. Cardiovascular: 2+ bilateral DP pulses, capillary refill less than 2 seconds. The bilateral lower extremities are warm, well-perfused, and skin appears sym metric. Pulmonary: normal work of breathing, no accessory muscle use. Abdomen/GI: Soft, nontender, nondistended, no guarding or rigidity, no masses. Musculoskeletal: No deformities. Integumentary: Appropriate color for ethnicity, warm, dry, no pallor or jaundice, no rash. Neurologic: Alert, answering questions appropriately, normal speech, no facial droop, moving all extremities well. 5/5 strength and sensation intact to light touch in the bilateral lower extremities. Upgoing EHLs bilaterally. Slightly antalgic gait. No foot drop. Patellar reflexes 2+ bilaterally. Psychiatric: Appropriate mood and affect, normal thought process. This patient was seen and evaluated during the 2019 SARS-CoV-2 novel coronavirus pandemic period. Community viral transmission is ongoing at time of this en counter and the emergency department is operating under pandemic response procedures. back Pain Score (Numeric/FACES): 7 - Related Data Allergies Allergy/AdvReac Type Severity Reaction Status Date / Time Penicillins Allergy Anaphylactic Verified 08/06/20 08:06 Shock Home Meds: Home Meds metFORMIN [Glucophage XR] 500 mg PO DAILY 01/06/19 [History] Albuterol Sulfate [Proair Hfa] 2 puff INH Q4H PRN 01/31/19 [History] norgestimate-ethinyl estradioL [Sprintec 28 Day Tablet] 1 tab PO DAILY 01/31/19 [History] Past Medical History HEENT History: Reports: Other (See Below) Other HEENT History: wears glasses/contacts, has veneers on 2 upper front teeth Respiratory History: Reports: Asthma Gastrointestinal History: Reports: GERD Genitourinary History: Reports: Renal Calculus Other Genitourinary History: passed 1 kidney stone 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 Musculoskeletal History: Reports: Fracture Other Musculoskeletal History: hx of fx right arm and right middle finger - Infectious Disease History Infectious Disease History: Reports: Chicken Pox - Past Surgical History HEENT Surgical History: Reports: Oral Surgery Other HEENT Surgeries/Procedures: wisdom teeth removal Neurological Surgical History: Reports: Laminectomy, Lumbar Spine Other Neurological Surgeries/Procedures: hx of hemilaminectomy x2 Musculoskeletal Surgical History: Reports: Other (See Below) Other Musculoskeletal Surgeries/Procedures:: Excision of Lipoma Social & Family History - Family History Family Medical History: No Pertinent Family History - Caffeine Use Caffeine Use: Reports: Coffee ED ROS GENERAL - Review of Systems Review Of Systems: See Below ED EXAM,LOWER BACK PAIN/INJURY - Physical Exam Exam: See Below Course - Vital Signs Text/Narrative:: 35-year-old female presenting with right-sided low back pain. No red flag symptoms to warrant advanced imaging such as CT or MRI at this point. Patient is requesting symptomatic treatment with NSAIDs. Neurologically intact in the bilateral lower extremities. Normal reflexes. We will plan for intramuscular ketorolac, oral extra strength acetaminophen, and lidocaine patch. Patient is stable to discharge with outpatient primary care or neurology follow- up at this point. 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 Discussed need for outpatient follow-up and symptomatic treatment at home. Plan: Patient is stable to discharge to self-care with outpatient primary care clinic follow-up. Strict emergency department return precautions were provided, patient indicated understanding. All questions were answered prior to departure. Discharged in good condition. Last Recorded V/S: Last Vital Signs Temp 35.8 C L 08/06/20 08:00 Pulse 79 08/06/20 08:00 Resp 16 08/06/20 08:00 BP 130/73 08/06/20 08:00 Pulse Ox 99 08/06/20 08:00 - Orders/Labs/Meds Meds: Medications Discontinued Medications Generic Name Dose Route Start Last Admin Trade Name Daryl PRN Reason Stop Dose Admin Acetaminophen 1,000 mg 08/06/20 08:06 08/06/20 08:12 Tylenol Extra Strength PO 08/06/20 08:07 1,000 mg ONETIME ONE Administration Ketorolac Tromethamine 15 mg 08/06/20 08:06 08/06/20 08:11 Toradol IM 08/06/20 08:07 15 mg ONETIME ONE Administration Lidocaine 700 mg 08/06/20 08:06 08/06/20 08:12 Lidoderm 5% TOP 08/06/20 08:07 700 mg ONETIME ONE Administration Departure - Departure Time of Disposition: 08:15 Disposition: Home, Self-Care 01 Condition: Good Clinical Impression: Right low back pain Qualifiers: Chronicity: acute Sciatica presence: without sciatica Qualified Code(s): M54.5 - Low back pain - Discharge Information *PRESCRIPTION DRUG MONITORING PROGRAM REVIEWED*: Not Applicable *COPY OF PRESCRIPTION DRUG MONITORING REPORT IN PATIENT EULA: Not Applicable Instructions: Acute Back Pain, Adult, Back Exercises, [id number] Referrals: Jeanne Sullivan MD [Physician] - 1 Week (For reevaluation of back pain and symptoms.) Forms: ED Department Discharge Additional Instructions: You were seen in the emergency department for low back pain. At this point your examination is reassuring. You are given some medications to help with pain. Please follow-up with your primary doctor or your neurologist in the next few days for reevaluation. Warning signs to come back to the ER include: Worsening back pain, fever, numbness or weakness of either your legs, trouble urinating or going to void stool, numbness in between your thighs or genitals, or any other new or concerning symptoms. Please return the emergency department immediately if your symptoms worsen or if you feel worse. Thank you for choosing the [facility] emergency department in [place] for your medical needs today. It was a pleasure caring for you. The following information is given to patients seen in the emergency department who are being discharged. This information is to outline your options for follow-up care. We provide all patients seen in our emergency department with a follow-up referral. The need for follow-up, as well as the timing and circumstances, are variable depending upon the specifics of your emergency department visit. If you don't have a primary care physician on staff, we will provide you with a referral. We always advise you to contact your personal physician following an emergency department visit to inform them of the circumstance of the visit and for follow-up with them and/or the need for any referrals to a consulting specialist. The emergency department will also refer you to a specialist when appropriate. This referral assures that you have the opportunity for follow-up care with a specialist. All of these measure are taken in an effort to provide you with optimal care, which includes your follow-up. Under all circumstances we always encourage you to contact your private physician who remains a resource for coordinating your care. When calling for follow-up care, please make the office aware that this follow-up is from your recent emergency room visit. If for any reason you are refused follow-up, please contact the [facility] Emergency Department at and asked to speak to the emergency department charge nurse. If you do not have a primary care physician that is caring for you, you can contact these clinics below to set up an appointment to establish care: [facility] - Primary Care [address] [place] [id number] [facility] [address] [place] [id number] Sepsis Event Note (ED) - Evaluation Sepsis Screening Result: No Definite Risk - Focused Exam Vital Signs: Vital Signs Temp Pulse Resp BP Pulse Ox 08/06/20 08:00 35.8 C L 79 16 130/73 99
== END 2020-08-06 08:23 | disposition home or self-care (01) ==
LOC: MW.ED 07:57
DX: M54.5 Low back pain (principal); J45.909 Unspecified asthma, uncomplicated; Z88.0 Allergy status to penicillin; Z79.899 Other long term (current) drug therapy
CPT/HCPCS: 96372; 99283; A9270; J1885

== ENCOUNTER 2023-05-26 17:07 | Emergency (ER) | payer BC ==
[2023-05-26 18:02] LABS: CORONAVIRUS COVID-19 NAA NEGATIVE (NEGATIVE); INFLUENZA A NAA NEGATIVE (NEGATIVE); INFLUENZA B NAA NEGATIVE (NEGATIVE)
[2023-05-26] MEDS ORDERED: Sodium Chloride 0.9% 10 ML Syringe FLUSH PRN (18:14)
[2023-05-26] MEDS ORDERED: Sodium Chloride 0.9% 2.5 ML Syringe FLUSH PRN (18:14)
[2023-05-26] MEDS ORDERED: Sodium Chloride 0.9% 1,000 ML IV ONE ×2 (18:17→20:00)
[2023-05-26] MEDS ORDERED: Acetaminophen 325 MG Tab PO ONE (18:17)
[2023-05-26] MEDS ORDERED: Ibuprofen 400 MG Tab PO ONE (18:17)
[2023-05-26 18:25] LABS: BASOPHILS ABSOLUTE AUTO 0.03 K/uL (0.00-0.20); BASOPHILS PERCENT AUTO 0.3 % (0.0-1.0); EOSINOPHILS ABSOLUTE AUTO 0.01 K/uL (0.00-0.45); EOSINOPHILS PERCENT AUTO 0.1 % (0.0-6.0); HEMATOCRIT 39.5 % (37.0-47.0); IMMATURE GRAN ABSOLUTE AUTO 0.04 K/uL (0.00-0.05); IMMATURE GRAN PERCENT AUTO 0.4 % (0.0-0.4); LYMPHOCYTES ABSOLUTE AUTO 0.74 K/uL (1.00-4.80); MEAN CORPUSCULAR HEMOGLOBIN 31.5 pg (28.0-32.0); MEAN CORPUSCULAR HGB CONC 35.4 g/dL (32.0-36.0); MEAN PLATELET VOLUME 9.2 fL (9.4-12.3); MONOCYTES ABSOLUTE AUTO 0.91 K/uL (0.00-0.80); MONOCYTES PERCENT AUTO 8.7 % (0.0-8.0); NEUTROPHILS ABSOLUTE AUTO 8.77 K/uL (1.80-7.70); NEUTROPHILS PERCENT AUTO 83.5 % (41.0-71.0); PLATELET COUNT,PLT 220 K/uL (150-400); RED BLOOD CELL COUNT 4.44 M/uL (4.10-5.30)
[2023-05-26 18:48] LABS: A/G RATIO 1.1 (0.9-1.6); ALBUMIN 3.9 g/dL (3.4-5.0); BILIRUBIN TOTAL 0.2 mg/dL (0.2-1.0); CALCIUM 9.2 mg/dL (8.5-10.1); CARBON DIOXIDE,CO2 24.2 mmol/L (21.0-32.0); CREATININE 0.9 mg/dL (0.6-1.0); EST CRCL DRUG DOSING (CG) 78.56 mL/min; POTASSIUM,K 3.7 mmol/L (3.5-5.1); PROTEIN TOTAL,TP 7.4 g/dL (6.4-8.2)
[2023-05-26 19:01] LABS: APPEARANCE,URINE CLEAR; BILIRUBIN,URINE NEGATIVE (NEGATIVE); COLOR,URINE YELLOW; GLUCOSE,URINE NEGATIVE (NEGATIVE); KETONES,URINE NEGATIVE (NEGATIVE); LEUKOCYTE ESTERASE,URINE NEGATIVE (NEGATIVE); NITRITE,URINE NEGATIVE (NEGATIVE); OCCULT BLOOD,URINE TRACE-INTACT (NEGATIVE); PROTEIN,URINE NEGATIVE (NEGATIVE); UROBILINOGEN,URINE 0.2 EU/dL (<2.0)
[2023-05-26 19:08] LABS: AMORPHOUS SEDIMENT,URINE FEW (NEGATIVE); BACTERIA,URINE FEW (NEGATIVE); EPITHELIAL CELLS,URINE RARE (NONE-FEW); RBC,URINE 0-2 (0-2/HPF); WBC,URINE 0-1 (0-5/HPF)
[2023-05-26] MEDS ORDERED: Iopamidol 755 MG/ML 500 ML Multipack Bottle IVPUSH ONE (19:22)
[2023-05-26] MEDS ORDERED: Ketorolac 30 MG/ML SDV IVPUSH ONE (20:13)
== END 2023-05-26 20:53 | disposition home or self-care (01) ==
LOC: MW.ED 17:07
DX: A08.4 Viral intestinal infection, unspecified (principal); Z86.16 Personal history of COVID-19; Z88.0 Allergy status to penicillin
CPT/HCPCS: 0240U; 36415; 74177; 80053; 81001; 81025; 83690; 85025; 96361; 96374; 99284; A9270; J1885; J3490; J7030; Q9967

== ENCOUNTER 2023-12-12 09:22 | Day surgery (SDC) | payer BC ==
[~2023-12-12 09:22] MED LIST changes: +Albuterol 0.083% 2.5 MG/3 ML Neb Soln NEB PRN; +HYDROmorphone 1 MG/ML Syringe IVPUSH PRN; -Lactated Ringers 1,000 ML IV SCH; +Metoclopramide 10 MG/2 ML SDV IVPUSH PRN; +Morphine 2 MG/ML SYRINGE IVPUSH PRN; +Naloxone 0.4 MG/ML SDV IVPUSH PRN; +Ondansetron 4 MG/2 ML SDV IVPUSH PRN; +droPERidol 5 MG/2 ML SDV IVPUSH PRN; +fentaNYL 50 MCG/ML SDV IVPUSH PRN
[2023-12-12] MEDS ORDERED: Scopalamine 1mg/3day Transdermal Patch ONE (09:34)
[2023-12-12] MEDS ORDERED: propofoL 100 ML ONE (09:49)
[2023-12-12] MEDS ORDERED: Rocuronium Bromide 50 MG/5 ML Syringe ONE ×2 (10:14→12:58)
[2023-12-12] MEDS ORDERED: Lidocaine 2% 5 ML SDV ONE (10:14)
[2023-12-12] MEDS ORDERED: Lidocaine 2% 11 ML Jelly Filled Syringe ONE (10:14)
[2023-12-12] MEDS ORDERED: fentaNYL 100 MCG/2 ML SDV ONE (10:16)
[2023-12-12] MEDS ORDERED: Tranexamic Acid 1,000 MG/10 ML Vial ONE (10:18)
[2023-12-12] MEDS ORDERED: Magnesium Sulfate (4.06 MEQ/ML) 5 GM/10 ML SDV ONE (10:18)
[2023-12-12] MEDS ORDERED: Ondansetron 4 MG/2 ML SDV ONE ×2 (10:24)
[2023-12-12] MEDS ORDERED: Morphine 10 MG/ML SDV ONE (10:24)
[2023-12-12] MEDS ORDERED: Ketamine HCL/NACL, ISO-OSM 50 MG/5 ML Syringe ONE (10:27)
[2023-12-12 10:34] LABS: HEMATOCRIT 40.5 % (37.0-47.0); MEAN CORPUSCULAR HEMOGLOBIN 31.8 pg (28.0-32.0); MEAN CORPUSCULAR HGB CONC 34.6 g/dL (32.0-36.0); MEAN PLATELET VOLUME 9.2 fL (9.4-12.3); PLATELET COUNT,PLT 285 K/uL (150-400); WHITE BLOOD CELL COUNT,WBC 8.14 K/uL (3.9-11.3)
[2023-12-12] MEDS ORDERED: ceFAZolin 2 GM Vial ONE (10:35)
[2023-12-12] MEDS ORDERED: Gabapentin 300 MG Cap ONE (10:46)
[2023-12-12] MEDS: Lactated Ringers 1,000 ML IV SCH (10:54)
[2023-12-12] MEDS ORDERED: Scopalamine 1mg/3day Transdermal Patch TOP ONE (11:30)
[2023-12-12] MEDS ORDERED: Sugammadex Sodium 200 MG/2 ML VIAL IV ONE ×2 (11:58→13:38)
[2023-12-12] MEDS ORDERED: propofoL 50 ML ONE ×2 (12:14→12:51)
[2023-12-12] MEDS ORDERED: Bupivacaine 0.5% 30 ML SDV ONE ×2 (13:03→13:09)
[2023-12-12] MEDS ORDERED: Bupivacaine 0.25% 30 ML SDV ONE (13:03)
[2023-12-12] MEDS ORDERED: Ketorolac 30 MG/ML SDV ONE (13:28)
== END 2023-12-12 17:15 | disposition home or self-care (01) ==
LOC: MW.SDS 09:22
PROVIDERS: ATTEND Obstetrics & Gynecology
DX: D25.0 Submucous leiomyoma of uterus (principal); N80.00 Endometriosis of the uterus, unspecified; J45.909 Unspecified asthma, uncomplicated; F32.A Depression, unspecified; Z88.0 Allergy status to penicillin
CPT/HCPCS: 36415; 49320; 58558; 84703; 85027; A9270; J0131; J0665; J0690; J1885; J2270; J2405; J2704; J3010; J3475; J3490; J7120; 00840